=== PATIENT | female | born 1965 | race Native Hawaiian/Other Pacific Islander ===

== ENCOUNTER 2019-09-09 11:04 | Outpatient (CLI) | payer OTHER | END 2019-09-09 20:17 | disposition home or self-care (01) | LOC: MRI 11:04 | DX: M51.27 Other intervertebral disc displacement, lumbosacral region (principal) ==

== ENCOUNTER 2020-12-15 08:44 | Outpatient (CLI) | payer OTHER | END 2020-12-15 19:39 | disposition home or self-care (01) | LOC: RAD 08:44 | PROVIDERS: ATTEND Internal Medicine | DX: Z13.820 Encounter for screening for osteoporosis (principal); N95.8 Other specified menopausal and perimenopausal disorders ==

== ENCOUNTER 2021-05-04 08:53 | Outpatient (CLI) | payer OTHER ==
[~2021-05-04] VITALS: Ht 157.5 cm; Wt 61.2 kg
== END 2021-05-04 19:23 | disposition home or self-care (01) ==
LOC: INF 08:53
PROVIDERS: ATTEND Internal Medicine
DX: M81.0 Age-related osteoporosis without current pathological fracture (principal)
CPT/HCPCS: 36415; 82310; 96372; J0897

== ENCOUNTER 2021-11-22 08:02 | Outpatient (CLI) | payer OTHER ==
[~2021-11-22] VITALS: Ht 157.5 cm; Wt 83.9 kg
[2021-11-22 08:15] VITALS: BP 114/63; TEMP 98.2
[2021-11-22 08:53] VITALS: BP 121/66; TEMP 98.1
== END 2021-11-22 20:56 | disposition home or self-care (01) ==
LOC: INF 08:02
PROVIDERS: ATTEND Internal Medicine
DX: M81.0 Age-related osteoporosis without current pathological fracture (principal)
CPT/HCPCS: 36415; 82310; J0897